=== PATIENT | female | born 1940 | race Caucasian/White ===

== ENCOUNTER 2018-07-15 08:59 | Emergency (ER) | payer OTHER ==
--- NOTE | 2018-07-15 10:14 | RAD REPORT ---
EXAM DESCRIPTION: RAD - Knee Left 3 View - 07/15/2018 10:00 am CLINICAL HISTORY: pain COMPARISON: No comparisons FINDINGS: Prominent arthritic changes are present involving the glenohumeral joint and the medial [place] int compartment. No fracture or dislocation is seen. Trace suprapatellar joint effusion. IMPRESSION: Prominent osteoarthritis is present.
--- NOTE | 2018-07-15 10:38 | ER ---
Nurse's Notes [facility] Name: Sallie Armstrong Age: 77 yrs Sex: Female : 1940 Arrival Date: 07/15/2018 Time: 09:05 Bed 6 Private MD: out of town, doctor Diagnosis: Pain in left knee Presentation: 07/15 09:08 Presenting complaint: Patient states: "I stepped off a stool about 4 days ago and I aa5 hurt my knee". Pt c/o left knee pain. Transition of care: patient was not received from another setting of care. Onset of symptoms was July 11, 2018. 09:08 Method Of Arrival: Ambulatory aa5 09:08 Risk Assessment: Do you want to hurt yourself or someone else? Patient reports no aa5 desire to harm self or others. Initial Sepsis Screen: Does the patient meet any 2 criteria? No. Patient's initial sepsis screen is negative. Does the patient have a suspected source of infection? No. Patient's initial sepsis screen is negative. Care prior to arrival: None. 09:08 Acuity: AWA 4 aa5 Triage Assessment: 09:22 General: Appears in no apparent distress. uncomfortable, Behavior is calm, cooperative, hj appropriate for age. 09:22 Pain: Complains of pain in left knee. hj Historical: - Allergies: 09:23 PENICILLINS; hj 09:23 Sulfa (Sulfonamide Antibiotics); hj 09:23 VANCOMYCIN AND DERIVATIVES; hj - Home Meds: 09:23 Toprol XL 25 mg Oral Tb24 1 tab once daily [Active]; levothyroxine 88 mcg tab 1 tab hj once daily [Active]; aspirin 81 mg Oral chew 1 tab once daily [Active]; pravastatin 10 mg oral tab 1 tab once daily [Active]; - PMHx: 09:23 Irregular heart rate; Hypothyroidism; Hyperlipidemia; Pacemaker; hj - PSHx: 09:23 R foot surgery; hj - Immunization history:: Adult Immunizations up to date. - Social history:: Smoking status: Patient/guardian denies using tobacco, Patient/guardian denies using. - Ebola Screening: : Patient negative for fever greater than or equal to 101.5 degrees Fahrenheit, and additional compatible Ebola Virus Disease symptoms Patient denies exposure to infectious person Patient denies travel to an Ebola-affected area in the 21 days before illness onset. Screenin:08 Abuse screen: Denies threats or abuse. Denies injuries from another. Nutritional hj screening: No deficits noted. Tuberculosis screening: No symptoms or risk factors identified. Fall Risk None identified. Assessment: 09:32 General: Appears in no apparent distress. uncomfortable, Behavior is calm, cooperative, hj appropriate for age. Pain: Complains of pain in left knee. Neuro: Level of Consciousness is awake, alert, obeys commands, Oriented to person, place, time, situation, Appropriate for age. Cardiovascular: Capillary refill < 3 seconds Patient's skin is warm and dry. Respiratory: Airway is patent Respiratory effort is even, unlabored, Respiratory pattern is regular, symmetrical. GI: No signs and/or symptoms were reported involving the gastrointestinal system. : No signs and/or symptoms were reported regarding the genitourinary system. EENT: No signs and/or symptoms were reported regarding the EENT system. Derm: No signs and/or symptoms reported regarding the dermatologic system. Musculoskeletal: Reports pain in left knee. 09:35 Reassessment: xray taken. Vital Signs: 09:21 BP 141 / 65; Pulse 87; Resp 18; Temp 98.6(TE); Pulse Ox 96% on R/A; Weight 81.65 kg; hj Height 5 ft. 4 in. (162.56 cm); 10:45 BP 138 / 68; Pulse 85; Resp 18; Pulse Ox 97% on R/A; hj 09:21 Body Mass Index 30.90 (81.65 kg, 162.56 cm) ED Course: 09:05 Patient arrived in ED. mr 09:06 out of town, doctor is Private Physician. mr 09:08 Lyle Arredondo, DESIREE is Primary Nurse. hj 09:08 Arm band placed on. aa5 09:10 [facility] kb 09:10 Shahid Yoo MD is Attending Physician. kb 09:19 Triage completed. aa5 09:24 Patient has correct armband on for positive identification. Bed in low position. Call light in reach. Side rails up X 1. Adult w/ patient. 09:57 X-ray completed. Portable x-ray completed in exam room. Patient tolerated procedure ls3 well. Administered Medications: No medications were administered Outcome: 10:37 Discharge ordered by . kb 10:50 Patient left the ED. hj Signatures: Makenzie Tate, [employer] NATUROPATHIC DOCTOR-Anu Cummings Audri, RN RN aa5 Lyle Arredondo, RN RN Ari Garcia ls3
--- NOTE | 2018-07-15 10:38 | EDPHYS ---
Physician Documentation [facility] Name: Sallie Armstrong Age: 77 yrs Sex: Female : 1940 Arrival Date: 07/15/2018 Time: 09:05 Bed 6 Private MD: out of town, doctor ED Physician Shahid Yoo HPI: 07/15 09:33 This 77 yrs old Female presents to ER via Ambulatory with complaints of Knee kb Pain. 09:33 The patient presents with pain, that is acute. The complaints affect the left knee. kb Context: The problem was sustained at home, the patient can fully bear weight, the patient is able to ambulate. Onset: The symptoms/episode began/occurred 4 day(s) ago. Modifying factors: The symptoms are alleviated by nothing. the symptoms are aggravated by weight bearing. Associated signs and symptoms: The patient has no apparent associated signs or symptoms. Treatment prior to arrival includes: george wrap. Severity of symptoms: At their worst the symptoms were moderate, in the emergency department the symptoms are unchanged. The patient has not experienced similar symptoms in the past. The patient has not recently seen a physician. Pt reports she was stepping off of a stool and felt her knee give way 4 days ago. Was seen at , but states "she didn't even look at my knee and told me it was a strain." Has been using an george wrap for compression but it isn't helping. Historical: - Allergies: 09:23 PENICILLINS; hj 09:23 Sulfa (Sulfonamide Antibiotics); hj 09:23 VANCOMYCIN AND DERIVATIVES; hj - Home Meds: 09:23 Toprol XL 25 mg Oral Tb24 1 tab once daily [Active]; levothyroxine 88 mcg tab 1 tab hj once daily [Active]; aspirin 81 mg Oral chew 1 tab once daily [Active]; pravastatin 10 mg oral tab 1 tab once daily [Active]; - PMHx: 09:23 Irregular heart rate; Hypothyroidism; Hyperlipidemia; Pacemaker; hj - PSHx: 09:23 R foot surgery; hj - Immunization history:: Adult Immunizations up to date. - Social history:: Smoking status: Patient/guardian denies using tobacco, Patient/guardian denies using. - Ebola Screening: : Patient negative for fever greater than or equal to 101.5 degrees Fahrenheit, and additional compatible Ebola Virus Disease symptoms Patient denies exposure to infectious person Patient denies travel to an Ebola-affected area in the 21 days before illness onset. ROS: 09:38 Constitutional: Negative for fever, chills, and weight loss, Cardiovascular: Negative kb for chest pain, palpitations, and edema, Respiratory: Negative for shortness of breath, cough, wheezing, and pleuritic chest pain, Abdomen/GI: Negative for abdominal pain, nausea, vomiting, diarrhea, and constipation, Back: Negative for injury and pain, Skin: Negative for injury, rash, and discoloration, Neuro: Negative for headache, weakness, numbness, tingling, and seizure. 09:38 MS/extremity: Positive for pain. Exam: 09:38 Constitutional: This is a well developed, well nourished patient who is awake, alert, kb and in no acute distress. Head/Face: Normocephalic, atraumatic. Chest/axilla: Normal chest wall appearance and motion. Nontender with no deformity. No lesions are appreciated. Cardiovascular: Regular rate and rhythm with a normal S1 and S2. No gallops, murmurs, or rubs. Normal PMI, no JVD. No pulse deficits. Respiratory: Lungs have equal breath sounds bilaterally, clear to auscultation and percussion. No rales, rhonchi or wheezes noted. No increased work of breathing, no retractions or nasal flaring. Abdomen/GI: Soft, non-tender, with normal bowel sounds. No distension or tympany. No guarding or rebound. No evidence of tenderness throughout. Skin: Warm, dry with normal turgor. Normal color with no rashes, no lesions, and no evidence of cellulitis. Neuro: Awake and alert, GCS 15, oriented to person, place, time, and situation. Cranial nerves II-XII grossly intact. Motor strength 5/5 in all extremities. Sensory grossly intact. Cerebellar exam normal. Normal gait. 09:38 Musculoskeletal/extremity: Extremities: grossly normal except: noted in the left knee: pain, ROM: intact in all extremities, Circulation is intact in all extremities. Sensation intact. Weight bearing: able to fully bear weight. Vital Signs: 09:21 BP 141 / 65; Pulse 87; Resp 18; Temp 98.6(TE); Pulse Ox 96% on R/A; Weight 81.65 kg; hj Height 5 ft. 4 in. (162.56 cm); 10:45 BP 138 / 68; Pulse 85; Resp 18; Pulse Ox 97% on R/A; hj 09:21 Body Mass Index 30.90 (81.65 kg, 162.56 cm) hj MDM: 09:10 Patient medically screened. kb 09:38 Data reviewed: vital signs, nurses notes. Data interpreted: Pulse oximetry: on room air kb is 96 %. Interpretation: normal. 10:37 Counseling: I had a detailed discussion with the patient and/or guardian regarding: the kb historical points, exam findings, and any diagnostic results supporting the discharge/admit diagnosis, radiology results, the need for outpatient follow up, a orthopedic surgeon, to return to the emergency department if symptoms worsen or persist or if there are any questions or concerns that arise at home. 07/15 09:22 Order name: Knee Left 3 View XRAY kb 07/15 10:47 Order name: RAD; Complete Time: 10:49 EDMS 07/15 10:37 Order name: Knee Immobilizer; Complete Time: 10:37 kb 07/15 10:37 Order name: Crutches; Complete Time: 10:38 kb Administered Medications: No medications were administered Disposition: 15:33 Co-signature as Attending Physician, Shahid Yoo MD. rn Disposition: 07/15/18 10:37 Discharged to Home. Impression: Pain in left knee. - Condition is Stable. - Discharge Instructions: Knee Pain, [id number]. - Medication Reconciliation Form, Thank You Letter, Antibiotic Education, Prescription Opioid Use form. - Follow up: Emergency Department; When: As needed; Reason: Worsening of condition. Follow up: Private Physician; When: 2 - 3 days; Reason: Recheck today's complaints, Continuance of care, Re-evaluation by your physician. Signatures: Dispatcher [facility] Makenzie Tate, [employer]RAT[employer] SERVICES OFFICER-Shahid Mcguire MD MD rn Joaquin, Henry, RN RN hj Corrections: (The following items were deleted from the chart) 10:50 10:37 07/15/2018 10:37 Discharged to Home. Impression: Pain in left knee. Condition is hj Stable. Forms are Medication Reconciliation Form, Thank You Letter, Antibiotic Education, Prescription Opioid Use. Follow up: Emergency Department; When: As needed; Reason: Worsening of condition. Follow up: Private Physician; When: 2 - 3 days; Reason: Recheck today's complaints, Continuance of care, Re-evaluation by your physician. kb
== END 2018-07-15 10:50 | disposition home or self-care (01) ==
LOC: ER 08:59
DX: M25.562 Pain in left knee (principal); M17.12 Unilateral primary osteoarthritis, left knee; E03.9 Hypothyroidism, unspecified; E78.5 Hyperlipidemia, unspecified; Z79.82 Long term (current) use of aspirin; Z79.899 Other long term (current) drug therapy; Z95.0 Presence of cardiac pacemaker
CPT/HCPCS: 99281